=== PATIENT | male | born 1995 | race American Indian/Alaskan Native ===

== ENCOUNTER 2018-08-14 05:21 | Emergency (ER) | payer MEDICAID, OTHER ==
[2018-08-14 05:35] VITALS: BP 124/63; PULSE 100; RESP 22; TEMP 97.9; O2SAT 98
--- NOTE | 2018-08-14 06:07 | C.PDOC ---
History Of Present Illness 23 year old male presents to the ED c/o diffuse puritic rash for the past 2 days. Patient reports taking Benadryl [employer]IC[employer]. Patient denies fever, chills, SOB, wheezing, lip swelling, facial swelling, nausea, vomit. Time Seen by Provider: 08/14/18 05:48 Chief Complaint (Nursing): Abnormal Skin Integrity History Per: Patient History/Exam Limitations: no limitations Onset/Duration Of Symptoms: Days (2) Current Symptoms Are (Timing): Still Present Quality Of Symptoms: Itching Recent travel outside of the [place]: No Additional History Per: Patient Past Medical History Reviewed: Historical Data, Nursing Documentation, Vital Signs Vital Signs: Last Vital Signs Temp 97.9 F 08/14/18 05:31 Pulse 100 H 08/14/18 05:31 Resp 22 08/14/18 05:31 BP 124/63 08/14/18 05:31 Pulse Ox 98 08/14/18 05:31 Primary Care Provider: Sean Keating - Medical History PMH: No Chronic Diseases Surgical History: No Surg Hx Family History: States: Unknown Family Hx - Social History Hx Alcohol Use: No Hx Substance Use: No - Immunization History Hx Tetanus Toxoid Vaccination: No Hx Influenza Vaccination: No Hx Pneumococcal Vaccination: No Review Of Systems Constitutional: Negative for: Fever, Chills ENT: Negative for: Mouth Swelling, Throat Swelling Respiratory: Negative for: Cough, Shortness of Breath, Wheezing Gastrointestinal: Negative for: Nausea, Vomiting Skin: Positive for: Rash Physical Exam - Physical Exam Appears: Non-toxic, No Acute Distress Skin: Warm, Dry (extremlly dry), Rash (diffuse urticaria. No lesions) Head: Atraumatic, Normacephalic Eye(s): bilateral: Normal Inspection Ear(s): Bilateral: Normal Oral Mucosa: Moist Tongue: No Swelling Lips: No Swelling Throat: Normal, No Erythema, No Exudate, No Drooling, Other (uvula midline) Neck: Normal ROM, Supple Chest: Symmetrical Cardiovascular: Rhythm Regular Respiratory: Normal Breath Sounds, No Rales, No Rhonchi, No Wheezing Neurological/Psych: Oriented x3, Normal Speech, Normal Cognition Gait: Steady ED Course And Treatment O2 Sat by Pulse Oximetry: 98 (ON RA) Pulse Ox Interpretation: Normal Progress Note: Plan: - Pepcid 20 mg PO. - Prednisone 60 mg PO. Patient is resting comfortably, tolerating PO, has no shortness of breath, has no intra- oral swelling, no stridor, no rash or pruritus. Patient was advised to avoid potential allergens, and to follow up with physician in 1-2 days. Disposition Counseled Patient/Family Regarding: Diagnosis, Need For Followup, Rx Given - Disposition Referrals: PMD, Private Office [Other] Disposition: HOME/ ROUTINE Disposition Time: 06:04 Condition: IMPROVED Additional Instructions: May take benadryl at bedtime Take medications as directed Use hypoallergenic boy products Return to ER if worse Prescriptions: Cetirizine HCl [Zyrtec] 10 mg PO DAILY #14 capsule Famotidine [Pepcid] 20 mg PO DAILY #7 tab predniSONE [Prednisone] 40 mg PO DAILY #8 tab Instructions: Adeel (DC) Forms: [email or web address] (Belarusian) - Clinical Impression Clinical Impression: Urticaria - 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 - Scribe Statement The provider has reviewed the documentation as recorded by the Scribe Monico Garcia All medical record entries made by the Scribe were at my direction and personally dictated by me. I have reviewed the chart and agree that the record accurately reflects my personal performance of the history, physical exam, medical decision making, and the department course for this patient. I have also personally directed, reviewed, and agree with the discharge instructions and disposition.
== END 2018-08-14 06:12 | disposition home or self-care (01) ==
LOC: C.ER 05:21
DX: L50.9 Urticaria, unspecified (principal)